=== PATIENT | male | born 1990 | race Caucasian/White ===

== ENCOUNTER 2020-07-30 13:17 | Emergency (ER) | payer BC ==
[~2020-07-30] VITALS: Ht 165.1 cm; Wt 70.3 kg
[~2020-07-30 13:17] MED LIST: PERCOCET 5-3251 EACH PO
[2020-07-30] MEDS ORDERED: CRUTCH1 EACH MISC (15:18)
[2020-07-30] MEDS ORDERED: NORCO 5-325 TA1 EACH PO (15:18)
== END 2020-07-30 15:42 | disposition home or self-care (01) ==
LOC: ED 13:17
DX: S82.832A Other fracture of upper and lower end of left fibula, initial encounter for closed fracture (principal)
CPT/HCPCS: 73610; 99283-25